=== PATIENT | female | born 2000 | race Caucasian/White ===

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

== ENCOUNTER 2020-07-12 07:22 | Emergency (ER) | payer OTHER, MEDICAID ==
[~2020-07-12] VITALS: Ht 167.6 cm; Wt 70.3 kg
[~2020-07-12 07:22] MED LIST changes: +IBU800 MG PO
[2020-07-12] MEDS ORDERED: IRON325 PO (07:42)
[2020-07-12 07:49] LABS: URINE BILIRUBIN NEGATIVE (Negative); URINE BLOOD NEGATIVE (Negative); URINE CLARITY CLEAR; URINE COLOR YELLOW; URINE GLUCOSE-RANDOM NEGATIVE (Negative); URINE KETONES NEGATIVE (Negative); URINE LEUKOCYTES TRACE (Negative); URINE NITRITE NEGATIVE (Negative); URINE PROTEIN NEGATIVE (Negative); URINE SPECIFIC GRAVITY 1.015 (1.005-1.030)
[2020-07-12 08:06] LABS: SQUAMOUS >10 Many /LPF (0-3)
[2020-07-12 08:07] LABS: BACTERIA >30 Many /HPF (None Seen); CASTS None Seen /LPF (None Seen); CRYSTALS None Seen /LPF (None Seen); MUCUS 4-6 Moderate strn/LPF (None Seen); URINE RBC 0-2 Rare /HPF (0-2); URINE WBC 0-5 Rare /HPF (0-5)
[2020-07-12 08:18] LABS: ABSOLUTE LYMPHOCYTES 1.4 thou/uL (0.8-5.3); ABSOLUTE MONOCYTES 0.5 thou/uL (0.0-1.2); ABSOLUTE NEUTROPHILS 5.5 thou/uL (1.6-8.1); BASOPHILS 0.2 %; EOSINOPHILS 0.5 %; HEMATOCRIT 35.6 % (37.0-47.0); LYMPHOCYTES 18.8 %; MCHC 33.8 g/dL (28.0-37.0); MCV 85.9 fL (80.0-100.0); MONOCYTES 6.1 %; MPV 7.7 fl. (7.2-11.1); NUCLEATED RBCS 0 /100WBC; PLATELET COUNT* 211 thou/uL (150-400); POLYS 74.4 %; RBC 4.14 mil/uL (4.20-5.00); RDW-CV 12.5 % (10.5-14.5); WBC 7.4 thou/uL (4.0-11.0)
[2020-07-12 08:29] LABS: INR 1.1
[2020-07-12 08:32] LABS: CALCIUM 8.8 mg/dL (8.5-10.1); CREATININE 0.6 mg/dL (0.6-1.3)
[2020-07-12 08:36] LABS: ALBUMIN 3.3 g/dL (3.4-5.0); TOTAL BILIRUBIN 0.4 mg/dL (<0.1-1.0); TOTAL PROTEIN 7.5 g/dL (6.4-8.2)
[2020-07-12 09:28] VITALS: BP 128/78
== END 2020-07-12 09:29 | disposition home or self-care (01) ==
LOC: M.ERS 07:22
PROVIDERS: Family Medicine
DX: O26.892 Other specified pregnancy related conditions, second trimester (principal); R10.2 Pelvic and perineal pain; Z3A.18 18 weeks gestation of pregnancy

== ENCOUNTER 2020-10-06 20:00 | Emergency (ER) | payer OTHER, MEDICAID ==
[~2020-10-06] VITALS: Ht 170.2 cm; Wt 84.8 kg
[~2020-10-06 20:00] MED LIST changes: +IRON325 PO
[2020-10-06 20:36] LABS: URINE BILIRUBIN NEGATIVE (Negative); URINE BLOOD 3+ (Negative); URINE CLARITY CLEAR; URINE COLOR YELLOW; URINE GLUCOSE-RANDOM NEGATIVE (Negative); URINE KETONES NEGATIVE (Negative); URINE LEUKOCYTES-REFLEX NEGATIVE (Negative); URINE NITRITE-REFLEX NEGATIVE (Negative); URINE PROTEIN NEGATIVE (Negative); URINE SPECIFIC GRAVITY 1.025 (1.005-1.030); URINE UROBILINOGEN 0.2 E.U./dl (0.2-1.0)
[2020-10-06 20:44] LABS: CASTS None Seen /LPF (None Seen); CRYSTALS None Seen /LPF (None Seen); MUCUS None Seen strn/LPF (None Seen); SQUAMOUS >10 Many /LPF (0-3)
[2020-10-06 20:46] LABS: URINE RBC 3-10 Few /HPF (0-2); URINE WBC-REFLEX 0-5 Rare /HPF (0-5)
[2020-10-06 23:10] VITALS: BP 102/55
== END 2020-10-06 23:10 | disposition short-term general hospital (02) ==
LOC: M.ERS 20:00
PROVIDERS: Personal Emergency Response Attendant
DX: O62.4 Hypertonic, incoordinate, and prolonged uterine contractions (principal); Z79.899 Other long term (current) drug therapy; Z3A.00 Weeks of gestation of pregnancy not specified

== ENCOUNTER 2021-04-18 21:09 | Emergency (ER) | payer OTHER, MEDICAID ==
[~2021-04-18] VITALS: Ht 167.6 cm; Wt 68.0 kg
[2021-04-18] MEDS ORDERED: IBUPROFEN 800800 MG PO (23:24)
[2021-04-18] MEDS ORDERED: ACETAMINOPHEN-1 EAC2 PO (23:24)
[2021-04-19 00:01] VITALS: BP 118/62
== END 2021-04-19 00:01 | disposition home or self-care (01) ==
LOC: M.ERS 21:09
DX: M79.671 Pain in right foot (principal)